=== PATIENT | male | born 1990 | race Caucasian/White ===

== ENCOUNTER 2020-07-30 10:55 | Emergency (ER) | payer SELFPAY ==
[2020-07-30 11:00] VITALS: BP 118/79; PULSE 98; RESP 16; TEMP 36.6; O2SAT 97; BMI 17.4
--- NOTE | 2020-07-30 11:10 | XRR_ITS ---
PROCEDURE INFORMATION: Exam: XR Cervical Spine Exam date and time: 07/30/2020 11:30 AM Age: 30 years old Clinical indication: Neck pain TECHNIQUE: Imaging protocol: XR of the cervical spine. Views: 2 or 3 views. COMPARISON: No relevant prior studies available. FINDINGS: Bones/joints: Normal. No acute fracture. Normal alignment. Soft tissues: Unremarkable. XR/XR cervical spine 3V* [id number] IMPRESSION: No acute findings.
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
[2020-07-30] MEDS: ondansetron 2 mg/ML SDV 2 mL 4 MG IVP (11:30)
[2020-07-30] MEDS: ketorolac 30 mg/mL INJ IVP (11:30)
[2020-07-30] MEDS: sodium chloride 0.9% 1,000 ML 999 ML IV (11:30)
[2020-07-30 12:07] VITALS: BP 115/74; PULSE 80; RESP 14; O2SAT 97
[2020-07-30 12:10] LABS: Basophils % 0.3 %; Hematocrit 42.7 % (42.0-52.0); Hemoglobin 15.2 g/dL (11.7-16.6); Lymphocytes # 0.5 10^3/uL (0.8-4.8); Mean Corpuscular HGB Conc 35.6 g/dL (30.0-36.0); Mean Corpuscular Hemoglobin 32.5 pg (28.0-34.0); Mean Corpuscular Volume 91.4 fL (80-94); Mean Platelet Volume 10.3 fL (7.4-10.4); Monocytes # 0.6 10^3/uL (0.2-0.9); Monocytes % 6.8 %; Neutrophils # 8.17 10^3/uL (1.8-7.7); Neutrophils % 87.7 %; Nucleated Red Blood Cells % 0 %; Platelet Count 171 10^3/cmm (130-400); Red Blood Count 4.67 10^6/uL (4.1-5.3); Red Cell Distribution Width 12.7 % (12.1-15.1); White Blood Count 9.3 10^3/uL (4.0-10.0)
[2020-07-30 12:31] LABS: Anion Gap 13.5 (5-19); Blood Urea Nitrogen 8 mg/dL (6-20); Calcium 8.8 mg/dL (8.5-10.5); Carbon Dioxide 24 mmol/L (22-29); Chloride 96 mmol/L (98-107); Glomerular Filtration Rate 157.1 mL/min (90-130); Glucose 111 mg/dL (65-115); Osmolality Calculated 269 mOsm/kg (285-295); Potassium 3.5 mmol/L (3.5-5.1); Sodium 130 mmol/L (136-145)
[2020-07-30 13:00] VITALS: BP 107/68; PULSE 82; RESP 14; O2SAT 98
== END 2020-07-30 13:01 | disposition home or self-care (01) ==
PROVIDERS: Emergency Provider Emergency Medicine
DX: R51.9 Headache, unspecified (principal); R11.2 Nausea with vomiting, unspecified
CPT/HCPCS: 70450; 72040; 80048; 85025; J1885; J2405; J7030

== ENCOUNTER 2023-09-03 11:00 | Emergency (ER) | payer BC, MEDICAID, SELFPAY ==
[2023-09-03 11:05] VITALS: BP 133/78; PULSE 98; RESP 16; TEMP 36.7; O2SAT 97
--- NOTE | 2023-09-03 11:20 | W.ED.RECABL ---
HPI - Recheck/Abnormal Lab/Rx General: Chief Complaint: Recheck/Abnormal Lab/Rx Stated Complaint: blood type Time Seen by Provider: 09/03/23 11:12 Source: patient Mode of arrival: ambulatory Limitations: no limitations History of Present Illness: 33-year-old male states his is and he wants to know his blood type. He states she is Rh+ he has no other complaints at this time. Review of Systems Const: Denies: fever(s), chills, body aches or change in appetite Eyes: Denies: blurry vision or eye discomfort ENMT: Denies: throat pain or dental pain Card: Denies: chest pain Resp: Denies: dyspnea GI: Denies: abdominal pain, nausea, vomiting or diarrhea Musc: Denies: neck pain or back pain Physical Exam Const: COMMON NORMALS: no acute distress and healthy appearing HENMT: COMMON NORMALS: normocephalic and atraumatic HEAD & SCALP: normocephalic and atraumatic Neck/C-Spine: COMMON NORMALS: full ROM and supple Chest: COMMONS NORMALS: normal inspection of the chest Resp: COMMON NORMALS: normal respiratory effort Psych: COMMON NORMALS: mental status grossly normal, Normal thought process present and cooperative THOUGHT PROCESS: Normal thought process present Skin: COMMON NORMALS: no rashes or lesions noted and no wounds GENERAL SKIN EXAM: no rashes or lesions noted Course Vital Signs: Vital signs: Vital Signs Temperature 98.1 F 09/03/23 11:05 Pulse Rate 98 09/03/23 11:05 Respiratory Rate 16 09/03/23 11:05 Blood Pressure 133/78 09/03/23 11:05 Pulse Oximetry 97 09/03/23 11:05 Oxygen Delivery Me thod Room Air 09/03/23 11:05 MDM - Recheck/Abnormal Lab/Rx Medical Decision Making Patient presents here wanting his blood type checked due to his being I explained to him that he does not matter what his blood type is good he is wondering if she needs a RhoGAM shot. I informed him that it is based off what her blood type is and there is no reason for us to check his blood type. In the ER Medical Records I reviewed the patient's medical records. No radiology studies performed this visit Discharge Plan Discharge Patient Disposition: Home Clinical Impression: Well adult Condition: Stable Prescriptions: No Action ondansetron 4 mg tablet,disintegrating 4 mg PO Q6H PRN (Reason: nausea and vomiting) Qty: 14 0RF Naprosyn 500 mg tablet 500 mg PO BID PRN (Reason: pain) Qty: 20 0RF Discharge Orders: Discharge ED (Routine); Ordered 09/03/23 Ordered By: Kenny Payne Discharge Diet: Advance as tolerated Discharge Activity: Resume usual activity Coding Level of Care Code ED Fruit And Vegetable Packer for Jean-Claude Mckeon
== END 2023-09-03 11:34 | disposition home or self-care (01) ==
PROVIDERS: Emergency Provider Emergency Medicine
DX: Z00.00 Encounter for general adult medical examination without abnormal findings (principal)
CPT/HCPCS: 99281